=== PATIENT | female | born 1990 | race Caucasian/White ===

== ENCOUNTER 2019-09-11 10:39 | Day surgery (SDC) | payer OTHER ==
[~2019-09-11] VITALS: Ht 149.9 cm; Wt 55.0 kg
[2019-09-11] MEDS ORDERED: LACTATED RINGERS 1,000 ML IV SCH (11:00)
[2019-09-11 11:15] VITALS: BP 123/90
[2019-09-11] MEDS ORDERED: BIRTH CONTROL PO (11:23)
[2019-09-11] MEDS ORDERED: MIDAZOLAM 1 MG/ML, 2ML ONE (11:26)
[2019-09-11] MEDS ORDERED: FENTANYL PF 100 MCG/2ML ONE (11:26)
[2019-09-11] MEDS ORDERED: FENTANYL PF 100 MCG/2ML IV PRN (11:30)
[2019-09-11] MEDS ORDERED: ACETAMINOPHEN 500 MG TABLET PO ONE (11:30)
[2019-09-11] MEDS ORDERED: MEPERIDINE/PF 25MG/ML,1ML IVPush PRN (11:30)
[2019-09-11] MEDS ORDERED: LABETALOL 5 MG/ML SYR. (IV ONLY) IV PRN (11:30)
[2019-09-11] MEDS ORDERED: PROMETHAZINE 25 MG/ML, 1ML IV PRN (11:30)
[2019-09-11] MEDS ORDERED: hydrALAzine 20 MG/ML, 1ML IV PRN (11:30)
[2019-09-11] MEDS ORDERED: GABAPENTIN 300 MG CAPSULE PO ONE (11:30)
[2019-09-11] MEDS ORDERED: HYDROmorphone 2 MG/ML, 1ML IVPush PRN (11:30)
[2019-09-11] MEDS ORDERED: PLEASE ENTER HEIGHT AND WEIGHT MC SCH (11:30)
[2019-09-11] MEDS ORDERED: OXYcodone 5 MG/5 ML ORAL.SOL UDC PO PRN (11:30)
[2019-09-11] MEDS ORDERED: HALOPERIDOL 5 MG/ML IV PRN (11:30)
[2019-09-11] MEDS ORDERED: PLEASE ENTER ALLERGIES MC SCH (11:30)
[2019-09-11 11:59] LABS: BASOPHILS # (AUTO) 0.03 x10^3/uL (0-0.1); BASOPHILS % (AUTO) 0 % (0-1); EOSINOPHILS # (AUTO) 0.05 x10^3/uL (0-0.4); EOSINOPHILS % (AUTO) 1 % (1-7); LYMPHOCYTES # (AUTO) 4.13 x10^3/uL (1-3.4); LYMPHOCYTES % (AUTO) 41 % (22-44); MD NO; MEAN CORPUSCULAR HEMOGLOBIN 30.1 pg (27.0-34.8); MEAN CORPUSCULAR HGB CONC 33.1 g/dL (32.4-35.8); MEAN CORPUSCULAR VOLUME 90.9 fL (80-100); MEAN PLATELET VOLUME 8.4 fL (7.4-10.4); MONOCYTES # (AUTO) 0.43 x10^3/uL (0.2-0.8); MONOCYTES % (AUTO) 4 % (2-9); NEUTROPHILS % (AUTO) 54 % (42-75); PLATELET COUNT 288 x10^3/uL (130-400); RED CELL DISTRIBUTION WIDTH 13.8 % (9.6-15.2)
[2019-09-11 12:10] LABS: HCG UR SG 1.015 (1.003-1.030)
[2019-09-11] MEDS ORDERED: BUPIVACAINE/PF 0.25% ONE (12:35)
[2019-09-11] MEDS ORDERED: BUPIVACAINE/PF 0.25% INFIL ONE (13:34)
[2019-09-11] MEDS ORDERED: ROCURONIUM 10MG/ML,5ML ONE (13:49)
[2019-09-11] MEDS ORDERED: CEFAZOLIN 1,000 MG ONE (13:49)
[2019-09-11] MEDS ORDERED: PROPOFOL 10 MG/ML, 20ML ONE (13:49)
[2019-09-11] MEDS ORDERED: GLYCOPYRROLATE 0.2MG/1ML, 5ML ONE (13:49)
[2019-09-11] MEDS ORDERED: DEXAMETHASONE 4 MG/ML, 1ML ONE (13:49)
[2019-09-11] MEDS ORDERED: ONDANSETRON 2MG/ML, 2ML ONE (13:49)
[2019-09-11] MEDS ORDERED: SUCCINYLCHOLINE 20 MG/ML, 10ML ONE (13:49)
[2019-09-11] MEDS ORDERED: NEOSTIGMINE 1 MG/ML, 10ML ONE (13:49)
== END 2019-09-11 16:31 | disposition home or self-care (01) ==
LOC: OR 10:39
PROVIDERS: ATTEND Obstetrics & Gynecology
DX: T83.32XA Displacement of intrauterine contraceptive device, initial encounter (principal); N73.6 Female pelvic peritoneal adhesions (postinfective); N80.3 Endometriosis of pelvic peritoneum; Z79.899 Other long term (current) drug therapy; Z88.8 Allergy status to other drugs, medicaments and biological substances; Y83.8 Other surgical procedures as the cause of abnormal reaction of the patient, or of later complication, without mention of misadventure at the time of the procedure
CPT/HCPCS: 36415; 49329; 81025; 85025; J0330; J0690; J1100; J2250; J2405; J2550; J2704; J2710; J3010; J3490; J7120